=== PATIENT | female | born 1985 | race Caucasian/White ===

== ENCOUNTER 2019-06-20 04:52 | Emergency (ER) | payer OTHER, SELFPAY ==
--- NOTE | ~2019-06-20 | XR_ITS ---
EXAMINATION: XR chest 1V portable EXAM DATE: 06/21/2019 09:45 INDICATION: PICC line placement. TECHNIQUE: Portable AP frontal chest x-ray was obtained. There is no prior study for comparison. FINDINGS: There is a right-sided PICC line with tip poorly visualized but extending down the SVC, exp ected direction. The lungs are clear. There are no pleural effusions. Cardiac silhouette is promine nt but magnified on this AP technique. There is no pneumothorax suspected. The bones and soft tiss ues are unremarkable. IMPRESSION: Right-sided PICC line, tip poorly visualized but pointing in expected direction. Reviewed, dictated and finalized at location B. EL MANAGER IMPRESSION: Right-sided PICC line, tip poorly visualized but pointing in expect ed direction.
[2019-06-20 05:01] VITALS: BP 151/99; PULSE 93; RESP 22; TEMP 37; O2SAT 100
--- NOTE | 2019-06-20 05:15 | ECG_ITS ---
Measurements Intervals [place] Rate: 93 P: 55 [place]: 157 QRS: -6 QRSD: 95 T: 14 QT: 345 QTc: 429 Interpretive Statements SINUS RHYTHM VOLTAGE CRITERIA FOR LVH POOR R WAVE PROGRESSION, ANTERIOR LEADS MINIMAL Q WAVES- LATERAL LEADS ABNORMAL ECG Electronically Signed On 06-20-2019 7:05:38 WORD PROCESSING MACHINE OPERATOR by Candido Soto D.O.
--- NOTE | 2019-06-20 05:30 | PC.NURSE ---
called poison control at spoke to Ana Cristina she will fax us information SNS depression, tachycardia , seizure risks, prolong QT
[2019-06-20 05:34] LABS: Basophils Absolute Auto 0.1 K/mm3 (0.0-0.1); Basophils Percent Auto 0.6 % (0.2-1.2); Eosinophils Absolute Auto 0.4 K/mm3 (0-0.3); Eosinophils Percent Auto 2.4 % (0-4.4); Hematocrit 42.5 % (37.0-47.0); Immature Granulocyte Absolute 0.13 K/mm3 (0.00-0.031); Immature Granulocyte Percent A 0.8 % (0-0.5); Lymphocytes Absolute Auto 3.36 K/mm3 (0.9-3.2); Lymphocytes Percent Auto 21.4 % (18.3-44.2); Mean Corpuscular HGB Conc 30.6 g/dl (32-36); Mean Corpuscular Hemoglobin 26.2 pg (26-34); Mean Corpuscular Volume 85.5 fl (80-100); Mean Platelet Volume 11.1 fl (7.4-10.4); Monocytes Absolute Auto 1.3 K/mm3 (0.1-0.6); Monocytes Percent Auto 8.2 % (2.6-8.5); Neutrophils Absolute Auto 10.5 K/mm3 (1.3-6.7); Neutrophils Percent Auto 66.6 % (45.5-73.1); Platelet Count Result 294 k/mm3 (150-375); Red Blood Count 4.97 M/mm3 (4.2-5.4); Red Cell Distribution Width 15.4 % (11.5-14.5); White Blood Count 15.7 K/mm3 (4.5-10.0)
[2019-06-20 05:45] LABS: INR 0.9; Prothrombin Time 11.8 Seconds (11.1-14.7)
[2019-06-20 05:46] LABS: Partial Thromboplastin Time 27.8 SECONDS (22.3-36.8)
[2019-06-20 05:50] LABS: Alanine Aminotransferase 30 U/L (4-35); Albumin Level 4.1 g/dL (3.5-5.1); Alkaline Phosphatase 121 U/L (38-126); Aspartate Amino Transferase 24 U/L (14-36); Bilirubin,Total 0.3 mg/dL (0.2-1.3); Blood Urea Nitrogen 20 mg/dL (7-17); Calcium 10.1 mg/dL (8.4-10.2); Carbon Dioxide 28 mmol/L (22-30); Chloride 100 mmol/L (98-107); Estimated CRCL calculation 186 ml/min; Estimated Glomerular Filt Rate > 60; Glucose 101 mg/dL (65-105); Potassium 4.4 mmol/L (3.4-5.0); Sodium 140 mmol/L (137-145)
[2019-06-20 05:54] LABS: Acetaminophen < 10 ug/mL (10-30); Ethanol < 10 mg/dL (<10); Salicylate < 1.0 mg/dL (2-20)
[2019-06-20 05:55] VITALS: BP 155/95; PULSE 103; RESP 22; O2SAT 100
--- NOTE | 2019-06-20 06:00 | PC.NURSE ---
pt refusing to leave bp cuff and pulse ox on at this time. dry charge process attendant and edp aware.
--- NOTE | 2019-06-20 06:14 | ED.OVERDOSE ---
HPI - Overdose General Chief Complaint: Overdose <Acacia Saucedo MD - Last Filed: 06/20/19 06:41> Stated Complaint: SI <Acacia Saucedo MD - Last Filed: 06/20/19 06:41> Time Seen by Provider: 06/20/19 05:02 <Acacia Saucedo MD - Last Filed: 06/20/19 06:41> Source: patient, EMS and old records reviewed <Acacia Saucedo MD - Last Filed: 06/20/19 06:41> Mode of arrival: EMS <Acacia Saucedo MD - Last Filed: 06/20/19 06:41> Limitations: no limitations <Acacia Saucedo MD - Last Filed: 06/20/19 06:41> History of Present Illness HPI Narrative: Patient is a 34-year-old female who presents to the emergency department via EMS from local prison for an overdose. Patient is currently in prison for wound care and IV antibiotics through her PICC line. Patient reportedly got into an argument with a friend and while face timing a friend was witnessed to take a handful of pills. Friend called the prison who then called EMS. Patient reportedly took approximately 450 mg of amitriptyline and 20 mg of hydrocodone with the intent to hurt herself. Patient wrote a lengthy suicide note that is on her chart in the emergency department. Patient does admit to attempting to harm herself. She states she has chronic thoughts of suicide. <Acacia Saucedo MD - Last Filed: 06/20/19 06:41> MD complaint: intentional overdose <Acacia Saucedo MD - Last Filed: 06/20/19 06:41> Intent: suicide attempt <Acacia Saucedo MD - Last Filed: 06/20/19 06:41> How Overdose Was Discovered: left note and other (Face time with a friend) <Acacia Saucedo MD - Last Filed: 06/20/19 06:41> Related Data Home Medications: Home Medications Medication Instructions Recorded Confirmed acetaminophen 650 mg PO TID 06/20/19 acyclovir 800 mg PO DAILY 06/20/19 amitriptyline 100 mg PO BID PRN 06/20/19 aspirin 81 mg PO DAILY 06/20/19 calcium carbonate-vitamin D3 1 tablet PO BID 06/20/19 daptomycin 1,000 mg IV DAILY 06/20/19 docusate sodium 100 mg PO BID 06/20/19 gabapentin 900 mg PO TID 06/20/19 hydrocodone-acetaminophen [[place]] 1 tablet PO Q4H 06/20/19 letrozole 2.5 mg PO DAILY 06/20/19 losartan 50 mg PO DAILY 06/20/19 metformin 1,000 mg PO BID 06/20/19 moxifloxacin 400 mg PO DAILY 06/20/19 multivitamin with iron 1 tablet PO DAILY 06/20/19 naproxen 500 mg PO BID 06/20/19 sennosides [senna] 8.6 mg PO BID PRN 06/20/19 tizanidine 8 mg PO BID 06/20/19 <Acacia Suacedo MD - Last Filed: 06/20/19 06:41> Allergies/Adverse Reactions: Allergies Allergy/AdvReac Type Severity Reaction Status Date / Time No Known Allergies Allergy Unknown Verified 04/10/19 09:39 <Acacia Saucedo MD - Last Filed: 06/20/19 06:41> Review of Systems Review of Systems: All systems reviewed & are unremarkable except as noted in HPI and below <Acacia Saucedo MD - Last Filed: 06/20/19 06:41> Integumentary/Breasts: Skin/Breast: Reports wounds (Chronic left lower extremity, seeing wound care) <Acacia Saucedo MD - Last Filed: 06/20/19 06:41> Psychiatric: Psychiatric: Reports depression and Reports suicidal ideation <Acacia Saucedo MD - Last Filed: 06/20/19 06:41> [facility] Social History Social History: Social History Smoking packs per day: 2 Smoking cigarettes per day: 40.0 Smoking status: Current every day smoker Alcohol intake: current Gender identity (if verbalized by the patient): Female <Acacia Saucedo MD - Last Filed: 06/20/19 06:41> Exam Const: General: cooperative, no acute distress and alert <Acacia Saucedo MD - Last Filed: 06/20/19 06:41> Nutritional Appearance: obese morbidly obese <Acacia Saucedo MD - Last Filed: 06/20/19 06:41> Orientation/consciousness: patient oriented x3 <Acacia Saucedo MD - Last Filed: 06/20
[2019-06-20 06:27] LABS: Add Urine Microscopic? YES; Appearance Urine Clear (Clear); Bilirubin Urine Negative (Negative); Blood Urine Negative (Negative); Color Urine Yellow (Yellow); Glucose Urine UA Negative (Negative); Ketones Urine Negative (Negative); Leukocyte Esterase Ur Negative LEU/UL (Negative); Mucus Urine Few /lpf; Nitrate Urine Negative (Negative); Protein Urine 1+ mg/dL (Negative); RBC Urine 0-2 /hpf (0-2); Specific Grav Ur 1.029 (1.001-1.035); Squamous Epithelial Cell Urine Few /hpf (Few); Urobilinogen Urine Negative mg/dL (<2.0); WBC Urine 0-3 /hpf
[2019-06-20 06:37] LABS: Amphetamine Screen Urine Negative (Negative); Barbiturate Screen Urine Negative (Negative); Benzodiazepines Screen Urine Negative (Negative); Cannabinoid Screen Urine Negative (Negative); Cocaine Screen Urine Negative (Negative); Methadone Screen Urine Negative (Negative); Opiate Screen Urine Positive (Negative); Phencyclidine Screen Urine Negative (Negative)
--- NOTE | 2019-06-20 06:58 | PC.NURSE ---
crisis contacted at this time.
--- NOTE | 2019-06-20 08:08 | PC.NURSE ---
Spoke to Hollis at poison control who said that a 4 hour acetaminophen level is required for pt to be cleared by them. Crisis stated that they will not evaluate the pt until cleared by poison control.
[2019-06-20 09:01] VITALS: BP 101/69; PULSE 90; RESP 18; TEMP 36.7; O2SAT 98
[2019-06-20 09:47] LABS: Acetaminophen < 10 ug/mL (10-30)
[2019-06-20 10:19] VITALS: BP 118/73; PULSE 88; RESP 15; O2SAT 99
--- NOTE | 2019-06-20 10:23 | PC.NURSE ---
Talked to Hollis at poison control about repeat acetaminophen level, vital signs, general pt condition, and other pertinent information and Hollis stated that the pt is medically cleared from poison control's standpoint - pt can be psychiatrically evaluated without further poison control monitoring or recommendations.
--- NOTE | 2019-06-20 10:28 | PC.NURSE ---
Elizabeth with crisis (phone: [phone]) notified that poison control had medically cleared the pt from their standpoint and pt was medically clear for psychiatric evaluation. Elizabeth stated that they were short staffed today and someone would be in as soon as possible.
--- NOTE | 2019-06-20 13:25 | PC.NURSE ---
Pt asking to use her personal cell phone to make a call to a friend (with whom she argues with sometimes) and to her child's school. It was explained to her calmly and plainly that she is not allowed to have personal objects with her at this time, including her cell phone. Pt became incredibly upset and stated that it would just be a 2 minute call and she would become increasingly upset if she could not make the call. Pt does not know the phone numbers and needs her cell phone to call, she says. All safety precautions observed while arrangements were being sought to possibly allow pt the use of her cellphone; however, pt wants the headphones to use with the cell phone because the phone is partially broken and pt states she cannot hear with the headphones. It was calmly and plainly explained to pt that she could absolutely not have the headphones with her at all but that she could get the phone numbers off of her phone to call. Pt refused and stated, I'm not calling my son's school and pressing all those damn numbers on the hospital phone! Pt also repeatedly asked for her bra and clothing, even after clear, calm explanation of why she could not have personal belongings at this time. Pt said, You all don't want to see how I get if I get aggravated! Pt does not want phone numbers or cell phone at this time since she cannot have her headphones. Pt resting calmly in bed after discussions about why she could not have personal belongings with her at this time.
--- NOTE | 2019-06-20 15:13 | PC.NURSE ---
All pt paperwork/chart faxed to [facility]. Fax number: .
--- NOTE | 2019-06-20 16:14 | PC.NURSE ---
Called [facility] to follow up on paperwork faxed to [facility]. Perry at [facility] stated that they were still looking at possible places for pt to go as psych inpatient and provided [facility] phone number: [phone]. [facility] called at that number and I spoke with Amanda who stated that they had received the paperwork and were reviewing it.
--- NOTE | 2019-06-20 16:32 | PC.NURSE ---
pt from room 7 to ED room 15, sitter at bedside
[2019-06-20 16:41] VITALS: BP 129/69; PULSE 81; RESP 15; TEMP 36.7; O2SAT 98
--- NOTE | 2019-06-20 17:30 | PC.NURSE ---
Spoke with Willard at [facility] who stated that pt's foot has the dressing: Collagen with silver and super absorbent dressing on top, wrapped with gauze. Dressing was last changed early this morning before arrival to [facility] and is generally a daily dressing change.
[2019-06-20] MEDS: DAPTOmycin 1,000 MG in SODIUM CHLORIDE 0.9% IV 50 ML 100 MG IVPB (18:29)
--- NOTE | 2019-06-20 18:58 | PC.NURSE ---
Talked with Elizabeth at Crisis and updated her on pt condition as well as what facilities had been contacted by Krystina (psych/Crisis). Elizabeth said she would check more places for pt placement and call us back.
--- NOTE | 2019-06-20 20:22 | PC.NURSE ---
LATE ENTRY NOTES ON 06/20/2019; 2000: OSMAR FROM [facility] CALLED AND INSTRUCTED THIS RN TO FAX PT'S FACE SHEET AND COMPLETED INPATIENT CERTIFICATION TO [facility] IN [facility] AT [phone]. 2012: ABOVE ITEMS FAXED AT THIS TIME TO [facility] AT [phone]. 2015: OSMAR FROM [facility] CALLED AND INFORMED THIS RN THAT [facility] HAS DECLINED THIS PT DUE TO MEDICAL ISSUES.
--- NOTE | 2019-06-20 20:30 | PC.NURSE ---
AFTER 2 FAILED IV ATTEMPTS AND ONE ATTEMPT BY ERT TO OBTAIN BLOOD DRAW; LAB CONTACTED TO SENT STAFF HOME THERAPY RN TO ASSIST IN OBTAINING BLOOD SPECIMENS.
[2019-06-21 03:20] VITALS: BP 140/86; PULSE 86; RESP 19; TEMP 36.6; O2SAT 97
[2019-06-21] MEDS: SOD HYPOCHLORITE 1/4 STRENGTH 473 ML 1 APPLIC TOPICAL (05:03)
[2019-06-21 07:03] VITALS: BP 156/109; PULSE 142; RESP 20; TEMP 36.6; O2SAT 97
--- NOTE | 2019-06-21 09:09 | PC.NURSE ---
As reported by [facility], patient order for Daptomycin IV has end date following dose on 06/22/2019.
[2019-06-21] MEDS: LOSARTAN POTASSIUM 50 MG TABLET PO (10:06)
[2019-06-21] MEDS: metFORMIN HCL 500 MG TABLET 1000 MG PO ×2 (10:06→18:52)
--- NOTE | 2019-06-21 10:24 | PC.NURSE ---
Dressing changed on PICC line at this time. PICC line does not flush or draw even with repositioning of arm.
[2019-06-21] MEDS: ALTEPLASE 2 MG VIAL (CATHFLO) IV PUSH (11:49)
[2019-06-21 12:16] VITALS: BP 147/98; PULSE 95; RESP 18; TEMP 36.2; O2SAT 97
[2019-06-21] MEDS: HEPARIN SOD FLUSH 500 UNITS/5 ML SYRINGE ×2 (15:22→20:45)
--- NOTE | 2019-06-21 18:05 | PC.NURSE ---
Pharmacy called and will make Daptomycin drip and will send metformin for this patient.
[2019-06-21] MEDS: DAPTOmycin 1,000 MG in SODIUM CHLORIDE 0.9% IV 50 ML 100 MG IVPB (18:52)
[2019-06-21 20:45] VITALS: BP 129/97; PULSE 108; RESP 20; TEMP 36.6; O2SAT 98
--- NOTE | 2019-06-21 21:10 | PC.NURSE ---
SPOKE WITH CRISIS, THEY WILL BE OUT TOMORROW FOR REEVALUATION.
--- NOTE | 2019-06-21 21:42 | PC.NURSE ---
PAPER WORK FAXED TO [facility] AND [facility]
--- NOTE | 2019-06-22 02:00 | PC.NURSE ---
[facility] DECLINED BECAUSE OF MEDICAL REASONS
--- NOTE | 2019-06-22 06:50 | PC.NURSE ---
[facility] CALLED TO REQUEST MORE INFORMATION TO GIVE TO THE DR. WILL CALL BACK AFTER SPEAKING WITH
--- NOTE | 2019-06-22 07:03 | PC.NURSE ---
ORDERED BREAKFAST TRAY FOR PATIENT
--- NOTE | 2019-06-22 12:16 | PC.NURSE ---
Lunch tray ordered.
--- NOTE | 2019-06-22 12:56 | PC.NURSE ---
[facility] called; reviewing patient's case and will discuss with physician.
--- NOTE | 2019-06-22 14:19 | PC.NURSE ---
Aime from [facility] called back; unable to take patient with PICC line in place. Advised if change in condition, call in a.m. for placement.
--- NOTE | 2019-06-22 14:49 | PC.NURSE ---
Elizabeth from Crisis here to evaluate patient.
--- NOTE | 2019-06-22 15:37 | PC.NURSE ---
Safety contract created per Elizabeth from Crisis. Awaiting discharge instructions from EDP.
[2019-06-22 16:54] VITALS: BP 149/64; PULSE 98; RESP 18; O2SAT 100
--- NOTE | 2019-06-27 11:32 | PC.NURSE ---
LATE ENTRY This note is being entered to document information to the patient's record. The following information was omitted on 06/21/2019. Patient received 50 ml of daptomycin. Infusion stopped at 1930. Patient tolerated well.
== END 2019-06-22 16:56 ==
PROVIDERS: Emergency Medicine; Emergency Provider Emergency Medicine
DX: T43.012A Poisoning by tricyclic antidepressants, intentional self-harm, initial encounter (principal); T40.2X2A Poisoning by other opioids, intentional self-harm, initial encounter; L98.8 Other specified disorders of the skin and subcutaneous tissue; F17.210 Nicotine dependence, cigarettes, uncomplicated
CPT/HCPCS: 36415; 37195; 71045; 80053; 80307; 81001; 81025; 84443; 85025; 85610; 85730; 93005; 96365; 99284; A9270; J0878; J2997

== ENCOUNTER 2020-10-29 12:59 | Emergency (ER) | payer OTHER, SELFPAY ==
[2020-10-29 13:27] VITALS: BP 167/102; PULSE 94; RESP 20; TEMP 36.4; O2SAT 98
--- NOTE | 2020-10-29 15:04 | ED.BACK ---
HPI - Back Pain/Injury General Chief Complaint: Back Pain/Injury Stated Complaint: right leg, back pain Time Seen by Provider: 10/29/20 14:50 Source: RN notes reviewed History of Present Illness HPI Narrative: Patient presents emergency department from home for back pain. Patient states she has had chronic problems with lower back pain for the past 2 years states that initially it had been with pain going down her left leg but has recently over the past several months been going down her right leg states the pain shoots from her right buttocks down into her right heel she notes intermittent tingling in the leg but denies any numbness. She denies any direct trauma or injury she denies any bowel or bladder incontinence patient states she is been taking ibuprofen and Tylenol at home with minimal relief she states she also has tinazidine at home which she takes for her foot as a muscle relaxer. Patient states she has had no formal evaluation by a back specialist but is been seen in several emergency departments and diagnosis sciatica denies any fevers or chills abdominal pain nausea or vomiting Related Data Home Medications Medication Instructions Recorded Confirmed acetaminophen 650 mg PO TID PRN 06/20/19 acyclovir 800 mg PO DAILY 06/20/19 amitriptyline 100 mg PO BID PRN 06/20/19 aspirin 81 mg PO DAILY 06/20/19 calcium carbonate-vitamin D3 1 tablet PO BID 06/20/19 daptomycin 1,000 mg IV DAILY 06/20/19 docusate sodium 100 mg PO BID 06/20/19 gabapentin 900 mg PO TID 06/20/19 hydrocodone-acetaminophen [[place]] 1 tablet PO BID PRN 06/20/19 letrozole 2.5 mg PO DAILY 06/20/19 losartan 50 mg PO DAILY 06/20/19 metformin 1,000 mg PO BID 06/20/19 multivitamin with iron 1 tablet PO DAILY 06/20/19 naproxen 500 mg PO BID 06/20/19 sennosides [senna] 8.6 mg PO BID PRN 06/20/19 tizanidine 8 mg PO BID 06/20/19 Allergies Allergy/AdvReac Type Severity Reaction Status Date / Time No Known Allergies Allergy Unknown Verified 10/29/20 14:47 Review of Systems Review of Systems: Narrative: Gen.: Denies fevers or chills ENT: Denies congestion Respiratory: Denies shortness of breath or cough CV: Denies chest pain or palpitations GI: Denies abdominal pain nausea, emesis or diarrhea denies burning, urgency, frequency or hematuria Musculoskeletal: See HPI Neuro: Denies numbness, tingling, weakness or focal weakness Skin: Denies rash Except as documented, all other systems reviewed and negative [facility] Past Medical History Medical History (Updated 10/29/20 @ 15:07 by Steven Parson DO) Acute renal failure x2 Depression GERD (gastroesophageal reflux disease) Hypertension PCOS (polycystic ovarian syndrome) Peripheral neuropathy Previous known suicide attempt Sleep apnea Ulcer of left lower leg UTI (urinary tract infection) Venous stasis Surgical History Surgical History History of appendectomy History of cholecystectomy History of skin graft History of tonsillectomy Previous section Family History Family History Mother Diabetes mellitus Hypertension Family history of kidney disease Father Diabetes mellitus Hypertension Sibling Diabetes mellitus Social History Social History Smoking packs per day: 2 Smoking cigarettes per day: 40.0 Smoking status: Current every day smoker Alcohol intake: current Gender identity (if verbalized by the patient): Female Exam Narrative: Exam Narrative: APPEARANCE: No acute distress, nontoxic, resting in bed Eyes: EOMI HEENT: Normocephalic, atraumatic, CV: Regular rate and rhythm without murmur RESPIRATORY: No respiratory distress. Clear to auscultation bilaterally. Abdomen: Soft and nontender, no rebound or guarding MUSCULOSKELETAl: Moves all extremities, no clubbing cyanosis or edema Nohemy
[2020-10-29] MEDS: predniSONE 20 MG TABLET 60 MG PO (15:31)
[2020-10-29] MEDS: MORPHINE SULFATE (*CRX) 4 MG/ML INJ IM (15:31)
--- NOTE | 2020-10-29 15:35 | PC.NURSE ---
patients family member became verbally hostile with this nurse when attempting to provide discharge instructions, She stated and what is she suppose to do when this stuff doesnt work?'
== END 2020-10-29 15:41 | disposition home or self-care (01) ==
LOC: ANHED 15:15
PROVIDERS: Emergency Provider Emergency Medicine; PCP Physician Assistant
DX: M54.40 Lumbago with sciatica, unspecified side (principal); I10 Essential (primary) hypertension; F17.210 Nicotine dependence, cigarettes, uncomplicated; Z79.82 Long term (current) use of aspirin; Z79.1 Long term (current) use of non-steroidal anti-inflammatories (NSAID); Z79.84 Long term (current) use of oral hypoglycemic drugs
CPT/HCPCS: 96372; 99283; J2270; J7512

== ENCOUNTER 2020-11-05 14:51 | Emergency (ER) | payer OTHER, SELFPAY ==
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
--- NOTE | ~2020-11-05 | XR_ITS ---
EXAMINATION: XR hip RT 2V w AP pelvis INDICATION: Right hip pain TECHNIQUE: AP view the pelvis and two views of the right hip are obtained. COMPARISON: None available FINDINGS: Bone alignment is normal. There is no fracture. The soft tissues are unremarkable. IMPRESSION: 1. No acute osseous abnormality. Reviewed, dictated and finalized at location B.
--- NOTE | ~2020-11-05 | XR_ITS ---
EXAMINATION: XR lumbar spine 2-3V DATE: 11/05/2020 15:50 INDICATION: Low back pain TECHNIQUE: Anteroposterior and lateral views of the lumbar spine, and cone-down lateral view of the l umbosacral junction were obtained. COMPARISON: 07/03/2016 FINDINGS: The vertebral body heights are normal. There are 2 mm of retrolisthesis of L4 on L5. Mild l oss of intervertebral disc space height at L3-4. Small degenerative osteophytes project from the ante rior endplates of multiple vertebral bodies. Surgical clips in the right upper quadrant are likely fr om prior cholecystectomy. The bowel gas pattern is normal. IMPRESSION: 1. Mild lumbar spondylosis without acute findings or significant interval change. Reviewed, dictated and finalized at location B. IMPRESSION: 1. Mild lumbar spondylosis without acute findings or significant interval wes estrada
[2020-11-05 14:54] VITALS: BP 155/94; PULSE 102; RESP 20; TEMP 37.1; O2SAT 98
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
[2020-11-05] MEDS: HYDROcodone/acetaminophen (*CRX) 5-325 MG TABLET 1 TAB PO (16:00)
[2020-11-05 16:01] VITALS: BP 161/88; PULSE 86; RESP 21; O2SAT 97
[2020-11-05] MEDS: IBUPROFEN 600 MG TABLET PO (16:01)
--- NOTE | 2020-11-05 16:10 | PC.NURSE ---
C Collar removed per EDP Dr Juan Antonio PINEDA.
[2020-11-05 17:32] VITALS: BP 155/95; PULSE 109; RESP 19; O2SAT 97
== END 2020-11-05 17:35 | disposition home or self-care (01) ==
PROVIDERS: Emergency Provider Emergency Medicine; PCP Physician Assistant
DX: S39.92XA Unspecified injury of lower back, initial encounter (principal); M79.604 Pain in right leg; I10 Essential (primary) hypertension; E28.2 Polycystic ovarian syndrome; G62.9 Polyneuropathy, unspecified; G47.30 Sleep apnea, unspecified; K21.9 Gastro-esophageal reflux disease without esophagitis; F32.9 Major depressive disorder, single episode, unspecified; V43.52XA Car driver injured in collision with other type car in traffic accident, initial encounter; F17.210 Nicotine dependence, cigarettes, uncomplicated; E66.01 Morbid (severe) obesity due to excess calories; Z68.43 Body mass index [BMI] 50.0-59.9, adult; Z87.440 Personal history of urinary (tract) infections; Z79.82 Long term (current) use of aspirin; M47.816 Spondylosis without myelopathy or radiculopathy, lumbar region
CPT/HCPCS: 72100; 73502; 73562; 99284; A9270; L0140